=== PATIENT | female | born 1970 | race Hispanic/Latino ===

== ENCOUNTER 2017-04-25 07:43 | Inpatient (IN) | payer OTHER ==
[~2017-04-25] VITALS: Ht 144.8 cm; Wt 65.8 kg
[2017-04-25] MEDS ORDERED: ONDANSETRON HCL INJ 2 MG/ML VIAL IV STA (08:01)
[2017-04-25 08:14] LABS: BASOPHILS # (AUTO) 0.1 (0.0-0.1); BASOPHILS % 0.4 % (0.0-1.0); EOSINOPHILS # (AUTO) 0.1 (0.0-0.4); HEMATOCRIT 38.5 % (34.2-44.1); HEMOGLOBIN 13.6 g/dL (12.0-16.0); LYMPHOCYTES # (AUTO) 2.7 (1.0-3.2); MEAN CORPUSCULAR HEMOGLOBIN 32.8 pg (28-32); MEAN CORPUSCULAR HGB CONC 35.3 g/dL (31-35); MEAN CORPUSCULAR VOLUME 92.8 fL (81-99); MONOCYTES # (AUTO) 0.6 (0.2-0.8); NEUTROPHILS # (AUTO) 10.7 (2.1-6.9); NEUTROPHILS % 75.1 % (38.7-80.0); PLATELET COUNT 257 x10e3/uL (140-360); RED BLOOD COUNT 4.15 x10e6/uL (3.6-5.1)
[2017-04-25] MEDS ORDERED: DICYCLOMINE HCL 20 MG/2 ML VIAL IM ONE (08:15)
[2017-04-25] MEDS ORDERED: SODIUM CHLORIDE 0.9% 1000ML 1,000 ML IV ONE (08:15)
[2017-04-25 08:18] LABS: BILIRUBIN,URINE NEGATIVE (NEGATIVE); KETONES,URINE NEGATIVE (NEGATIVE); LEUKOCYTE ESTERASE ,URINE NEGATIVE (NEGATIVE); NITRITE,URINE NEGATIVE (NEGATIVE); PROTEIN,URINE DIPSTICK NEGATIVE (NEGATIVE); URINE UROBILINOGEN 0.2 mg/dL (0.2 - 1)
[2017-04-25 08:22] LABS: CLARITY,URINE SL CLOUDY (CLEAR); COLOR,URINE YELLOW (YELLOW)
[2017-04-25 08:30] LABS: BACTERIA,URINE RARE /HPF; EPITHELIAL CELLS,URINE MODERATE /LPF; RBC,URINE 0-5 /HPF (0-5)
[2017-04-25 08:31] LABS: ALANINE AMINOTRANSFERASE 41 IU/L (0-55); ALBUMIN/GLOBULIN RATIO 1.1 (0.8-2.0); ALKALINE PHOSPHATASE 49 IU/L (40-150); AMYLASE 54 U/L (25-125); ANION GAP 12.5 mmol/L (8-16); BLOOD UREA NITROGEN 16 mg/dL (7-26); BUN/CREATININE RATIO 24 (6-25); CALCIUM 9.1 mg/dL (8.4-10.2); CARBON DIOXIDE 21 mmol/L (22-29); CHLORIDE 100 mmol/L (98-107); CREATININE, SERUM 0.68 mg/dL (0.57-1.11); EST GLOMERULAR FILTRATION RATE > 60 ML/MIN (60-); GLUCOSE 120 mg/dL (74-118); LIPASE 19 U/L (8-78); POTASSIUM 3.5 mmol/L (3.5-5.1); SODIUM 130 mmol/L (136-145)
[2017-04-25] MEDS ORDERED: DIATRIZOATE MEGL/DIATRIZOA SOD 30 ML BTL PO ONE (08:57)
[2017-04-25] MEDS ORDERED: SODIUM CHLORIDE 0.9% 50ML 50 ML ONE (09:39)
[2017-04-25] MEDS ORDERED: IOPAMIDOL 370 MG/ML 200 ML INFUS..BTL INJ ONE (09:40)
--- NOTE | 2017-04-25 11:05 | Diagnostic Imaging Report ---
PROCEDURE: CT ABDOMEN AND PELVIS WITH CONTRAST TECHNIQUE: The abdomen and pelvis were scanned utilizing a multidetector helical scanner from the diaphragm to the lesser trochanter after the IV administration of 100 cc of Isovue 370 and the oral administration of Gastroview. Coronal and sagittal multiplanar reformations were obtained. COMPARISON: None. INDICATIONS: RECTAL BLEEDING, ABDOMEN PAIN FINDINGS: LOWER THORAX: Normal. HEPATOBILIARY: No focal hepatic lesions. No biliary ductal dilatation. SPLEEN: No splenomegaly. PANCREAS: No focal masses or ductal dilatation. ADRENALS: No adrenal nodules. KIDNEYS/URETERS: No hydronephrosis, stones, or solid mass lesions. Cyst is present in the inferior pole of the left kidney. PELVIC ORGANS/BLADDER: Hysterectomy. Simple cyst is present in the right ovary. Normal left ovary. Normal urinary bladder. PERITONEUM / RETROPERITONEUM: No free air or fluid. LYMPH NODES: No lymphadenopathy. VESSELS: Unremarkable. GI TRACT: Circumferential bowel wall thickening is present in the distal descending colon, series 2 image 61. No distention or wall thickening. Moderate amount of retained feces in its intraluminal evaluation of the colon. No diverticuli are present. BONES AND SOFT TISSUES: Unremarkable. IMPRESSION: Circumferential bowel wall thickening of the descending colon may represent a colitis of infectious or inflammatory etiology. No evidence of perforation, obstruction, or drainable fluid collection. Dictated by: Damian George M.D. on 04/25/2017 at 11:05 Electronically approved by: Damian George M.D. on 04/25/2017 at 11:05
[2017-04-25] MEDS ORDERED: LEVOFLOXACIN 750MG/D5W 150ML 150 ML IV STA (11:25)
[2017-04-25] MEDS ORDERED: METRONIDAZOLE 500MG/NS 100ML 100 ML IV STA (11:25)
[2017-04-25] MEDS ORDERED: LEVOFLOXACIN 500MG/D5W 100ML IV SCH (11:45)
[2017-04-25] MEDS ORDERED: METRONIDAZOLE 500MG/NS 100ML IV SCH (12:00)
--- OUTSIDE RECORDS SUMMARY | 2017-04-25 12:07 | XMS REPORT ---
Author Author [facility] Address Unknown Phone Unavailable Care Team Providers Care Car Groomer Name Role Phone LEAH LUNA Unavailable Unavailable Problems This patient has no known problems. Allergies, Adverse Reactions, Alerts This patient has no known allergies or adverse reactions. Medications This patient has no known medications. Results Test Description Test Time Test Comments Text Results Atomic Results Result Comments CT ABDOMEN/PELVIS W [place] [id number] Patient Name: STEF IBARRA MR #: [id number] : 1970 Age/Sex: 46/F Req #: [id number] Adm Physician: Ordered by: LEAH LUNA MD Report #: [id number] Location: ER Room/Bed: Procedure: [id number] CT/CT ABDOMEN/PELVIS W Exam Date: 04/25/17 Exam Time: 929 REPORT STATUS: Signed PROCEDURE: CT ABDOMEN AND PELVIS WITH CONTRAST TECHNIQUE: The abdomen and pelvis were scanned utilizing a multidetector helical scanner from the diaphragm to the lesser trochanter after the IV administration of 100 cc of Isovue 370 and the oral administration of Gastroview. Coronal and sagittal multiplanar reformations were obtained. COMPARISON: None. INDICATIONS: RECTAL BLEEDING, ABDOMEN PAIN FINDINGS: LOWER THORAX: Normal. HEPATOBILIARY: No focal hepatic lesions. No biliary ductal dilatation. SPLEEN : No splenomegaly. PANCREAS: No focal masses or ductal dilatation. ADRENALS: No adrenal nodules. KIDNEYS/URETERS: No hydronephrosis, stones, or solid mass lesions. Cyst is present in the inferior pole of the left kidney. PELVIC ORGANS/BLADDER: Hysterectomy. Simple cyst is present in the right ovary. Normal left ovary. Normal urinary bladder. PERITONEUM / RETROPERITONEUM: No free air or fluid. LYMPH NODES: No lymphadenopathy. VESSELS: Unremarkable. GI TRACT: Circumferential bowel wall thickening is present in the distal descending colon, series 2 image 61. No distention or wall thickening. Moderate amount of retained feces in its intraluminal evaluation of the colon. No diverticuli are present. BONES AND SOFT TISSUES: Unremarkable. IMPRESSION: Circumferential bowel wall thickening of the descending colon may represent a colitis of infectious or inflammatory etiology. No evidence of perforation, obstruction, or drainable fluid collection. Dictated by: Collin Estevez M.D. on 04/25/2017 at 11:05 Electronically approved by: Collin Estevez M.D. on 04/25/2017 at 11:05 Dictated By: COLLIN ESTEVEZ MD [id number] Transcribed By: THELMA on 04/25/17 1105 COPY TO: LEAH LUNA MD
[2017-04-25] MEDS: HYDROMORPHONE 1MG/1ML INJ IV PRN ×2 (12:20→17:55)
[2017-04-25] MEDS: D5.45%NS/KCL 20MEQ 1,000 ML IV SCH (12:55)
[2017-04-25 15:44] VITALS: BP 123/58
[2017-04-25 15:51] VITALS: BP 123/58
[2017-04-25 15:58] VITALS: BP 123/58
[2017-04-25] MEDS: METRONIDAZOLE 500MG/NS 100ML 100 ML IV SCH (18:18)
[2017-04-25 20:00] VITALS: BP 97/55
[2017-04-25 20:22] VITALS: BP 97/55
[2017-04-25] MEDS ORDERED: PEG (High)/E-LYTE SOLN 4,000 ML BTL PO ONE (22:30)
[2017-04-26] VITALS (7 sets, daily range): BP systolic 112–146; BP diastolic 59–86
[2017-04-26] MEDS: METRONIDAZOLE 500MG/NS 100ML 100 ML IV SCH ×4 (00:16→17:55)
[2017-04-26] MEDS: D5.45%NS/KCL 20MEQ 1,000 ML IV SCH ×2 (06:09→14:22)
[2017-04-26 06:55] LABS: BASOPHILS % 0.4 % (0.0-1.0); EOSINOPHILS # (AUTO) 0.1 (0.0-0.4); EOSINOPHILS % 1.2 % (0.0-6.0); HEMATOCRIT 34.1 % (34.2-44.1); HEMOGLOBIN 11.7 g/dL (12.0-16.0); LYMPHOCYTES # (AUTO) 2.6 (1.0-3.2); LYMPHOCYTES % 26.8 % (18.0-39.1); MEAN CORPUSCULAR HEMOGLOBIN 32.2 pg (28-32); MEAN CORPUSCULAR HGB CONC 34.3 g/dL (31-35); MEAN CORPUSCULAR VOLUME 93.9 fL (81-99); MONOCYTES # (AUTO) 0.6 (0.2-0.8); MONOCYTES % 6.1 % (4.4-11.3); NEUTROPHILS # (AUTO) 6.2 (2.1-6.9); NEUTROPHILS % 65.3 % (38.7-80.0); PLATELET COUNT 223 x10e3/uL (140-360); RED BLOOD COUNT 3.63 x10e6/uL (3.6-5.1); RED CELL DISTRIBUTION WIDTH 13.2 % (11.7-14.4)
[2017-04-26 07:16] LABS: ANION GAP 14.6 mmol/L (8-16); BLOOD UREA NITROGEN 5 mg/dL (7-26); BUN/CREATININE RATIO 7 (6-25); CALCIUM 8.6 mg/dL (8.4-10.2); CARBON DIOXIDE 26 mmol/L (22-29); CHLORIDE 103 mmol/L (98-107); CREATININE, SERUM 0.72 mg/dL (0.57-1.11); EST GLOMERULAR FILTRATION RATE > 60 ML/MIN (60-); GLUCOSE 108 mg/dL (74-118); POTASSIUM 3.6 mmol/L (3.5-5.1); SODIUM 140 mmol/L (136-145)
[2017-04-26] MEDS: HYDROMORPHONE 1MG/1ML INJ IV PRN ×2 (09:49→20:45)
[2017-04-26] MEDS: ONDANSETRON HCL INJ 2 MG/ML VIAL IV PRN ×2 (10:29→20:45)
[2017-04-26] MEDS ORDERED: PROPOFOL IV EMULSION 10 MG/ML 20 ML VIAL ONE (13:18)
[2017-04-26] MEDS: LEVOFLOXACIN 750MG/D5W 150ML 150 ML IV SCH (13:30)
[2017-04-26] MEDS ORDERED: MIDAZOLAM HCL 5MG/ML 2ML VIAL ONE (14:53)
[2017-04-26] MEDS ORDERED: FENTANYL CITRATE/PF 100MCG/2 ML INJ ONE (14:53)
--- NOTE | 2017-04-26 15:59 | Operative Report ---
DATE OF PROCEDURE: April 26, 2017 REFERRING PHYSICIAN: Dr. Omayra Miller. PROCEDURE PERFORMED: 1. Esophagogastroduodenoscopy with biopsies. 2. Colonoscopy with polypectomy and biopsies. INDICATIONS FOR ESOPHAGOGASTRODUODENOSCOPY: Heartburn indigestion, "excessive belching." INDICATIONS FOR COLONOSCOPY: Lower abdominal pain, rectal bleeding, abnormal CT of abdomen. MEDICATION: Patient was done under MAC. Please see anesthesiologist's note. PROCEDURE: With the patient in the left lateral decubitus position, the flexible fiberoptic Olympus gastroscope was introduced into the esophagus under direct visualization without any difficulty. There was some patchy erythema noted in the distal esophagus. Minute tongues of velvety red mucosa were noted to extend proximally from the GE junction. Biopsies were obtained to rule out Arias's. The scope was then advanced with ease into the stomach, and the mucosa overlying the antrum and the body revealed some patchy erythema and low-grade to moderate edema, and biopsies were obtained and sent to stain for H. pylori. Pylorus appeared to be of normal contour and shape, was intubated with ease, and the scope was advanced all the way to the 2nd portion of the duodenum. The scope was then withdrawn slowly. Mucosa overlying the proximal 2nd portion and the duodenal bulb appeared to be within normal limits. The scope was then withdrawn back into the stomach and retroflexed, and the mucosa overlying the fundus and the cardia appeared to be within normal limits. The scope was then straightened out. The stomach was decompressed. The scope was subsequently withdrawn. Patient tolerated procedure well. IMPRESSION: 1. Distal esophagitis, mild. 2. Rule out Arias's esophagus. 3. Gastritis biopsied. Biopsies sent to stain for H. pylori. PLAN: Follow up histology. Initiate Protonix 40 mg 1 p.o. q.a.m. a.c. Patient was then turned around and after adequate lubrication of the anal canal, a flexible fiberoptic Olympus colonoscope was inserted into the rectum with ease and advanced all the way to the cecum. It was then withdrawn slowly. Mucosa overlying the cecum, ascending colon, and transverse colon appeared to be within normal limits. Two polyps were snared from the descending colon. There were some ulcerations noted in the distal descending and the proximal two-thirds of the sigmoid colon compatible with possible ischemic colitis. Biopsies were obtained. The rectum appeared to be within normal limits. The scope was then retroflexed into the distal rectum, and the area around the dentate line appeared to be within normal limits. The scope was then straightened out. The rectosigmoid area as well as the distal rectal area were decompressed. The scope was subsequently withdrawn. Patient tolerated the procedure well. IMPRESSION: 1. Descending colon polyps times 2 snared. 2. Rule out ischemic colitis, distal descending colon and proximal two-thirds of the sigmoid colon. Biopsies obtained. PLAN: Follow up histology. Initiate high-fiber low-fat diet. Patient will need a followup colonoscopy in 3 to 4 months to document healing. Job#: [id number] EV cc:OMAYRA MILLER MD
[2017-04-27 02:04] VITALS: BP 116/56
[2017-04-27] MEDS: D5.45%NS/KCL 20MEQ 1,000 ML IV SCH ×2 (03:42→17:02)
[2017-04-27] MEDS: ONDANSETRON HCL INJ 2 MG/ML VIAL IV PRN ×2 (04:27→21:53)
[2017-04-27] MEDS: HYDROMORPHONE 1MG/1ML INJ IV PRN ×2 (04:27→21:53)
[2017-04-27 05:01] VITALS: BP 106/60
[2017-04-27] MEDS: METRONIDAZOLE 500MG/NS 100ML 100 ML IV SCH ×4 (05:28→17:03)
[2017-04-27 08:00] VITALS: BP 161/59
[2017-04-27 12:00] VITALS: BP 123/79
[2017-04-27] MEDS: LEVOFLOXACIN 750MG/D5W 150ML 150 ML IV SCH (12:18)
[2017-04-27 16:00] VITALS: BP 133/66
[2017-04-27 20:00] VITALS: BP 143/87
[2017-04-28] VITALS: BP 128/80
[2017-04-28 00:11] VITALS: BP 128/80
[2017-04-28] MEDS: METRONIDAZOLE 500MG/NS 100ML 100 ML IV SCH ×4 (00:45→17:00)
[2017-04-28 04:00] VITALS: BP 134/82
[2017-04-28] MEDS: ONDANSETRON HCL INJ 2 MG/ML VIAL IV PRN ×2 (06:12→16:30)
[2017-04-28] MEDS: HYDROMORPHONE 1MG/1ML INJ IV PRN ×2 (06:12→16:30)
[2017-04-28] MEDS: D5.45%NS/KCL 20MEQ 1,000 ML IV SCH ×2 (06:27→18:25)
[2017-04-28 08:00] VITALS: BP 145/84
[2017-04-28 12:00] VITALS: BP 119/83
[2017-04-28] MEDS: LEVOFLOXACIN 750MG/D5W 150ML 150 ML IV SCH (12:02)
[2017-04-28 16:00] VITALS: BP 133/85
[2017-04-29] MEDS: METRONIDAZOLE 500MG/NS 100ML 100 ML IV SCH ×2 (00:24→05:30)
[2017-04-29 00:37] VITALS: BP 144/86
[2017-04-29 08:07] VITALS: BP 136/85
[2017-04-29] MEDS: D5.45%NS/KCL 20MEQ 1,000 ML IV SCH (09:02)
[2017-04-29] MEDS ORDERED: PANTOPRAZOLE SO40 MG PO (10:03)
[2017-04-29] MEDS ORDERED: LEVAQUIN500 MG PO (10:03)
[2017-04-29 10:05] VITALS: BP 136/85
--- NOTE | 2017-04-29 10:25 | Discharge Summary ---
Ms. Gonzalez is a 46-year-old female with a history of hypertension. She came to the emergency room complaining of abdominal pain, constipation and then blood in the stool. She was seen by Dr. Frye. She had leukocytosis. Abdominal CT showed colitis. She had an EGD that showed esophagitis and gastritis. Colonoscopy showed colitis. At the present time, the patient is doing much better. The plan is to discharge her home and have her follow up as an outpatient. On physical examination, she is awake and alert. Temperature is 97.7, blood pressure 136/85. The heart is regular rate. The lungs are clear to auscultation. The abdomen is soft. On the blood work, potassium is 3.6, creatinine 0.72, glucose 108. White count 9.51, hemoglobin 11.7. DISCHARGE DIAGNOSES 1. Abdominal pain secondary to colitis. 2. Rectal bleeding. 3. Gastritis and esophagitis. 4. Hypertension. 5. Alcohol abuse. PLAN: The plan at the present time is to discharge the patient home. We are going to put her on Levaquin p.o. Blood pressure at the present time is stable, so have her follow up as an outpatient for any need of hypertension. She also is going to need PPI when she goes home. She needs to follow up with me in [address] Frye as instructed by him. She is to call me or come back to the emergency room if any recurrent problem. All of this was discussed with the patient. All questions were answered to satisfaction. Please see home medication reconciliation list. ESCOBAR MILLER MD Job#: [id number]
== END 2017-04-29 10:42 | disposition home or self-care (01) | DRG 394 ==
LOC: ER 07:43 → ERHOLD 12:04 → MED/SURG2 12:32
PROVIDERS: ADMIT Internal Medicine; ATTEND Internal Medicine
PROC: 0DBM8ZX Excision of Descending Colon, Via Natural or Artificial Opening Endoscopic, Diagnostic (ICD-10-PCS; principal; 2017-04-26 15:00)
PROC: 0DBN8ZX Excision of Sigmoid Colon, Via Natural or Artificial Opening Endoscopic, Diagnostic (ICD-10-PCS; 2017-04-26 15:00)
PROC: 0DB78ZX Excision of Stomach, Pylorus, Via Natural or Artificial Opening Endoscopic, Diagnostic (ICD-10-PCS; 2017-04-26 15:00)
PROC: 0DB38ZX Excision of Lower Esophagus, Via Natural or Artificial Opening Endoscopic, Diagnostic (ICD-10-PCS; 2017-04-26 15:00)
DX: K55.9 Vascular disorder of intestine, unspecified (principal); F10.19 Alcohol abuse with unspecified alcohol-induced disorder; E87.1 Hypo-osmolality and hyponatremia; I10 Essential (primary) hypertension; K22.70 Barrett's esophagus without dysplasia; K29.70 Gastritis, unspecified, without bleeding; K21.0 Gastro-esophageal reflux disease with esophagitis; K59.00 Constipation, unspecified
CPT/HCPCS: 36415; 43235; 43239; 45378; 45384; 45385; 74177; 80048; 80053; 81001; 82150; 83690; 83993; 85025; 87045; 87493; 88305; 88312; 96367; 96375; 96376; 99284; J0500; J1170; J2250; J2405; J7030; Q9967

== ENCOUNTER → 2018-02-17 | Outpatient (CLI) | payer OTHER ==
[~2018-02-17] MED LIST: LEVAQUIN500 MG PO; PANTOPRAZOLE SO40 MG PO
== END ==
LOC: MAMMO 08:32
PROVIDERS: ATTEND Family Medicine
DX: Z12.31 Encounter for screening mammogram for malignant neoplasm of breast (principal)
CPT/HCPCS: 77067